=== PATIENT | female | born 1960 | race Caucasian/White ===

== ENCOUNTER 2017-08-22 15:31 | Emergency (ER) | payer BC, OTHER ==
[2017-08-22 15:42] VITALS: BP 165/89
--- NOTE | 2017-08-22 16:18 | UC ---
Hip/Pelvis Pain - HPI Summary HPI Summary: 56 female presents to the urgent care c/o RT hip pain and leg pain that has worsen for the past month. Pt reports she has Hx of chronic lower back and hip pain due to arthritis, sciatica and scoliosis. Her pain is managed by a Quiropractor. However she wants a Rx to see if her pain decreases until she can get an appointment. Pain is 3/10 at rest and 8/10 with movement. Pt denies numbness and tingling over the lower extremities, saddle anesthesia, fecal or urinary incontinence, urinary symptoms, SOB, chest pain, abdominal pain, N/V/D - History Of Current Complaint Chief Complaint: UCBackPain Stated Complaint: HIP, BACK AND LEG PAIN Time Seen by Provider: 08/22/17 15:54 Hx Obtained From: Patient ?: No Onset/Duration: Gradual Onset, Lasting Weeks - 1 year, Still Present, Worse Since - last month Timing: Intermittent Episodes Lasting: Severity Initially: Mild Severity Currently: Moderate Pain Intensity: 8 Pain Scale Used: 0-10 Numeric Location: Discrete At: - RT hip, lower back pain Character Of Pain: Aching Aggravating Factor(s): Movement Alleviating Factor(s): Rest, Heat, OTC Medications Associated Signs And Symptoms: Negative: Swelling, Redness, Bruising, Fever, Weakness, Dizziness, Knee Pain - Risk Factors Septic Arthritis Risk Factor: Negative - Allergies/Home Medications Allergies/Adverse Reactions: Allergies Allergy/AdvReac Type Severity Reaction Status Date / Time Molds & Smuts Allergy Headache Verified 08/22/17 15:34 Penicillins Allergy Rash Verified 08/22/17 15:34 PMH/Surg Hx/FS Hx/Imm Hx Previously Healthy: Yes Other Endocrine History: arthritis, scoliosis Other Cardiovascular History: MVP Other GI/ History: IBS Other Neurological History: Sciatica - Surgical History Surgical History: None - Family History Known Family History: Positive: Diabetes - Social History Occupation: Employed Full-time Lives: With Family Alcohol Use: Rare Substance Use Type: None Smoking Status (MU): Never Smoked Tobacco Review of Systems Constitutional: Negative Skin: Negative Eyes: Negative ENT: Negative Respiratory: Negative Cardiovascular: Negative Gastrointestinal: Negative Genitourinary: Negative Motor: Negative Neurovascular: Negative Musculoskeletal: Decreased ROM - RT hip, Other: - lower back pain and RT hip pain Neurological: Negative Psychological: Negative Is Patient Immunocompromised?: No All Other Systems Reviewed And Are Negative: Yes Physical Exam Triage Information Reviewed: Yes Appearance: Well-Appearing, No Pain Distress, Well-Nourished Vital Signs: Initial Vital Signs Temp 96 F 08/22/17 15:39 Pulse 106 08/22/17 15:39 Resp 20 08/22/17 15:39 BP 165/89 08/22/17 15:39 Pulse Ox 99 08/22/17 15:39 Vital Signs Reviewed: Yes Eyes: Positive: Conjunctiva Clear - PERRLA, EOMI ENT: Positive: Normal ENT inspection, Hearing grossly normal, Pharynx normal, Uvula midline, Other - B/L external ear canals w/ cerumen impaction unable to visualize TM's Neck: Positive: Supple, Nontender, No Lymphadenopathy Respiratory: Positive: Chest non-tender, Lungs clear, Normal breath sounds, No respiratory distress Cardiovascular: Positive: RRR, No Murmur, Pulses Normal, Brisk Capillary Refill Abdomen Description: Positive: Nontender, No Organomegaly, Soft. Negative: CVA Tenderness (R), CVA Tenderness (L) Bowel Sounds: Positive: Present Musculoskeletal: Positive: Strength Intact, Other: - Hip: Pt is able to ambulate to treatment area with difficulty or assistance,or antalgic gait. No surface trauma, ecchymosis. No erythema, warmth. No deformity, crepitus, or obvious asymmetry of the RT leg compared to the LF. No TTP over the symphysis pubis, ischial bone, iliac crest, trochanter, SI notch, point tenderness over the mid RT buttocks, no tenderness of quadriceps, femoral triangle, or inguinal ligament. No inguinal lymphadenopathy. ROM unlimited limited due to pain. Distal motor and neurovascular status are intact. Neurological: Positive: Alert, Muscle Tone Normal Psychological Exam: Normal Skin Exam: Normal Hip Injury Course/Dx - Course Course Of Treatment: 56 female presents to the urgent care c/o RT hip pain and leg pain that has worsen for the past month. Pt reports she has Hx of chronic lower back and hip pain due to arthritis, sciatica and scoliosis. Her pain is managed by a Quiropractor. However she wants a Rx to see if her pain decreases until she can get an appointment. Pain is 3/10 at rest and 8/10 with movement. Pt denies numbness and tingling over the lower extremities, saddle anesthesia, fecal or urinary incontinence, urinary symptoms, SOB, chest pain, abdominal pain , N/V/D. hx obtained. Pt with only point tenderness over the mid gluteus, no erythema or sweeeling observed, decrease ROM due to pain on examiantion. Pt Rx Naproxen PO to alleviate symptoms until she sees her Quiropractor. Also advised to f/u with Orthopedic DR larry for further evalatuation and treatment. Pt with B/L external ear canals impacted with crumen. Pt declined ear irrigation. Rx Debrox otic drops. Pt's BP is elevated today advised to decrease salt in diet , monitor BP and f/u with PCP for further management. Pt explained D/C instructions. Pt understood and agreed w/ plan of care. - Differential Dx/Diagnosis Differential Diagnosis/HQI/PQRI: Arthritis, Sciatica, Sprain, Strain, Other - UTI, Provider Diagnoses: 1- Acute RT hip pain. 2-Sciatica. 3-Elevated BP w/o Hx of HTN Discharge - Discharge Plan Condition: Stable Disposition: HOME Prescriptions: Carbamide Peroxide 6.5% OTIC* [DEBROX 6.5% Otic*] 5 drop LEFT EAR BID #1 bottle Naproxen [Naproxen 500 mg] 500 mg PO Q8H PRN #30 tab PRN Reason: Pain Patient Education Materials: Cerumen Impaction (ED), Sciatica (ED), Low Sodium Diet (ED) Forms: *Work Release Referrals: Duane Chacon MD [Primary Care Provider] - If Needed Rudy Larry MD [Medical Doctor] - If Needed Additional Instructions: 1- Please take Naproxen PO as directed after meals for pain. 2- Wear a back support. Avoid strenuous exercise of heavy lifting. F/u with your Quiroprator's appt. tonight for further treatment 3- Please follow up with Orthopedic Dr or your PCP in 1 week if not improvement of symptoms, for further management. 4- Your BP is elevated today. please decrease salt in your diet, monitor BP and if it continues to be elevated please f/u with your PCP for further management
== END 2017-08-22 16:50 | disposition home or self-care (01) ==
LOC: UCEAST 15:31
DX: M25.551 Pain in right hip (principal); M54.41 Lumbago with sciatica, right side; R03.0 Elevated blood-pressure reading, without diagnosis of hypertension; M41.9 Scoliosis, unspecified; M16.11 Unilateral primary osteoarthritis, right hip; I34.1 Nonrheumatic mitral (valve) prolapse; K58.9 Irritable bowel syndrome, unspecified; Z88.0 Allergy status to penicillin
CPT/HCPCS: 99212; G0463